=== PATIENT | male | born 1995 | race Caucasian/White ===

== ENCOUNTER 2021-02-26 12:21 | Outpatient (CLI) | payer OTHER, SELFPAY ==
--- NOTE | 2021-03-02 15:29 | WPDPFTINT ---
PFT Procedure Performed PFT Procedure Performed Plethysmography (Lung Vol) Diffusing Cap (DLCO) Flow Vol Loop Spirometry w/o Bronchodil PFT Interpretation DOS: 02/26/2021 REQUESTING: Asthma REASON FOR TESTING: Dr Francisco Hernandez PULMONARY FUNCTION TESTS This test shows repeatability of the FEV1 spirometry as Grade B. Spirometry: FEV1 is increased 127%, and FVC is 143%, supranormal. The FEV1/FVC ratio is 74% normal, no obstruction. No bronchodilator was given. Lung volumes: Total lung capacity mildly increased 128% consistent with hyperinflation. Residual volume normal 76%. RV/TLC is 14% which is not elevated, indicating that there is no air trapping. Diffusion: DLCO is 100%, normal. Flow volume loop: Flattening of the expiratory peak. IMPRESSION: Normal spirometry without obstruction, mild hyperinflation, no air trapping, normal diffusion. The flattening of the expiratory limb suggests a variable intrathoracic obstruction. This finding is non-specific and may be seen in a variety of conditions including tracheal lesions, bronchogenic cysts or tracheomalacia of the intrathoracic intrathoracic airway. Consider chest CT scan. Krysten Gonzalez MD
== END 2021-02-26 12:22 | disposition home or self-care (01) ==
PROVIDERS: PCP Family Medicine; Visit Provider Family Medicine
DX: J45.909 Unspecified asthma, uncomplicated (principal)
CPT/HCPCS: 94375; 94726; 94729

== ENCOUNTER → 2021-03-13 11:48 | Outpatient (CLI) | payer OTHER, SELFPAY ==
--- NOTE | ~2021-03-13 | CT_ITS ---
EXAMINATION: CT diagnostic chest w con DATE: 03/13/2021 12:16 INDICATION: Shortness of breath. Abnormal finding in lung field on chest regress reportedly performed at an outside facility. TECHNIQUE: Computed tomography (CT) of the chest was performed with 75 cc Omnipaque 350 intravenous c ontrast. Automated exposure control and iterative reconstruction technique were employed. Exam dose: 325.38 mGy-cm total exam DLP. COMPARISON: None FINDINGS: Normal heart size. No pericardial or pleural effusion. No hilar or mediastinal mass lesion or lymphadenopathy. The thyroid gland appears normal. No thoracic aortic aneurysm or dissection. No hilar or mediastinal mass lesion or lymphadenopathy. No pulmonary infiltrate or consolidation or pulmonary mass lesion. The adrenal glands are unremarkable. Included upper abdominal structures are unremarkable. IMPRESSION: No significant abnormality Reviewed, dictated and finalized at [facility]. Reviewed, dictated and finalized at [facility]. IMPRESSION: No significant abnormality
== END ==
PROVIDERS: PCP Family Medicine; Visit Provider Family Medicine
DX: R91.8 Other nonspecific abnormal finding of lung field (principal)
CPT/HCPCS: 71260; Q9967

== ENCOUNTER 2021-03-14 10:49 | Emergency (ER) | payer OTHER, SELFPAY ==
[2021-03-14] VITALS (15 sets, daily range): BP systolic 113–145; BP diastolic 63–80; PULSE 64–78; RESP 14–18; TEMP 36.5–36.8; O2SAT 96–100
--- NOTE | 2021-03-14 11:37 | PC.NURSE ---
Pt attempting to urinate in [place] at this time.
[2021-03-14 12:04] LABS: Alanine Aminotransferase 12 U/L (4-50); Albumin Level 4.7 g/dL (3.5-5.1); Alkaline Phosphatase 62 U/L (38-126); Anion Gap 8 mmol/L (8-16); Aspartate Amino Transferase 18 U/L (17-59); Bilirubin,Total 0.6 mg/dL (0.2-1.3); Blood Urea Nitrogen 13 mg/dL (9-20); Calcium 9.5 mg/dL (8.4-10.2); Carbon Dioxide 31 mmol/L (22-30); Chloride 103 mmol/L (98-107); Estimated CRCL calculation 115 ml/min; Estimated Glomerular Filt Rate > 60; Glucose 93 mg/dL (65-110); Lipase 54 U/L (23-300); Potassium 4.8 mmol/L (3.4-5.0); Sodium 142 mmol/L (137-145)
[2021-03-14 12:09] LABS: Basophils Percent Auto 0.6 % (0.2-1.2); Eosinophils Absolute Auto 0.2 K/mm3 (0-0.3); Eosinophils Percent Auto 4.2 % (0-4.4); Hematocrit 48.1 % (42.0-52.0); Hemoglobin 16.4 g/dL (14.0-18.0); Immature Granulocyte Absolute 0.01 K/mm3 (0.00-0.031); Immature Granulocyte Percent A 0.2 % (0-0.5); Lymphocytes Absolute Auto 1.58 K/mm3 (0.9-3.2); Lymphocytes Percent Auto 31.3 % (18.3-44.2); Mean Corpuscular HGB Conc 34.1 g/dl (32-36); Mean Corpuscular Hemoglobin 30.1 pg (26-34); Mean Corpuscular Volume 88.4 fl (80-100); Mean Platelet Volume 10.4 fl (7.4-10.4); Monocytes Absolute Auto 0.5 K/mm3 (0.1-0.6); Monocytes Percent Auto 10.5 % (2.6-8.5); Neutrophils Absolute Auto 2.7 K/mm3 (1.3-6.7); Neutrophils Percent Auto 53.2 % (45.5-73.1); Platelet Count Result 233 k/mm3 (150-375); Red Blood Count 5.44 M/mm3 (4.6-6.20); Red Cell Distribution Width 11.9 % (11.5-14.5); White Blood Count 5.1 K/mm3 (4.5-10.0)
[2021-03-14 12:49] LABS: Add Urine Microscopic? YES; Appearance Urine Clear (Clear); Bacteria Urine Trace /hpf; Bilirubin Urine Negative (Negative); Blood Urine Negative (Negative); Color Urine Yellow (Yellow); Glucose Urine UA Negative (Negative); Ketones Urine Negative (Negative); Leukocyte Esterase Ur Negative LEU/UL (Negative); Mucus Urine Moderate /lpf; Nitrate Urine Negative (Negative); Protein Urine Negative (Negative); RBC Urine 0-2 /hpf (0-2); Squamous Epithelial Cell Urine Rare /hpf (Few); WBC Urine 0-3 /hpf
--- NOTE | 2021-03-14 12:59 | ED.ABDPAIN ---
HPI - Abdominal Pain General Chief Complaint: Abdominal Pain <SARA Feldman Last Filed: 03/14/21 13:01> Stated Complaint: RLQ abd pain <SARA Feldman Last Filed: 03/14/21 13:01> Time Seen by Provider: 03/14/21 11:04 <Riya Maurice PA-C - Last Filed: 03/14/21 13:01> Source: patient <SARA Fedlman Last Filed: 03/14/21 13:01> Mode of arrival: ambulatory <SARA Feldman Last Filed: 03/14/21 13:01> Limitations: no limitations <SARA Feldman Last Filed: 03/14/21 13:01> History of Present Illness HPI narrative: Patient presents with now right lower quadrant pain he presented yesterday after having CT scan of his chest with contrast. Patient states that he was being evaluated for possible asthma. Patient denies any fever, chills, nausea, vomiting, diarrhea. Patient denies he does not currently have pain with just sitting still. Patient states he does have some mild tenderness with deep palpation. Patient reports that his symptoms are stemming to the emergency department. Patient denies previous abdominal surgeries or issues. <SARA Feldman Last Filed: 03/14/21 13:01> Related Data Home Medications: Home Medications Medication Instructions Recorded Confirmed cetirizine-pseudoephedrine tablet PO 03/14/21 [Zyrtec-D] fluticasone propionate [Flonase] INTRANASAL 03/14/21 <SARA Feldman Last Filed: 03/14/21 13:01> Allergies/Adverse Reactions: Allergies Allergy/AdvReac Type Severity Reaction Status Date / Time No Known Allergies Allergy Verified 03/14/21 11:14 <SARA Feldman Last Filed: 03/14/21 13:01> Review of Systems Review of Systems: CONSTITUTIONAL: Denies fever, chills, or sweats. EYES: Denies visual changes, redness, or discharge. ENT: Denies rhinorrhea, congestion, sore throat, or otalgia. CARDIOVASCULAR: Denies chest pain, palpitations, or edema. RESPIRATORY: Denies cough or dyspnea. GASTROINTESTINAL: Reports improved abdominal pain, denies nausea, vomiting, or diarrhea. GENITOURINARY: Denies dysuria or hematuria. SKIN: Denies rash or itching. MUSCULOSKELETAL: Denies back pain, joint pain, or myalgia. NEUROLOGIC: Denies headache, numbness, dizziness, or weakness. PSYCHIATRIC: Denies anxiety or depression. <Riya Maurice PA-C - Last Filed: 03/14/21 13:01> Exam Narrative: GENERAL: Well-appearing, well-nourished, and in no acute distress. Smiling and talking normally. HEAD: Normocephalic, atraumatic. EYES: PERRLA and EOMI. NECK: Supple. No adenopathy or masses. No carotid bruits or JVD CHEST: Clear to auscultation. No respiratory distress. No wheezes rales or rhonchi HEART: Regular rate and rhythm. No murmur heard. Normal peripheral pulses. ABDOMEN: Soft, no rebound or guarding. Patient not showing any signs of pain with light or deep palpation. Verbalizes mild discomfort with deep palpation of lower abdomen. nondistended, normal active bowel sounds. EXTREMITIES: Normal range of motion. No edema. SKIN: Warm, dry, no rash. NEURO: No focal deficits. Alert and oriented x3. PSYCH: Normal mood and affect. <SARA Feldman Last Filed: 03/14/21 13:01> Course Vital Signs Vital signs: Vital Signs Temperature 98.3 F 03/14/21 10:54 Pulse Rate 78 03/14/21 10:54 Respiratory Rate 16 03/14/21 10:54 Blood Pressure 145/80 H 03/14/21 10:54 Pulse Oximetry 100 03/14/21 10:54 Temperature 97.7 F 03/14/21 13:12 Pulse Rate 64 03/14/21 13:12 Respiratory Rate 14 03/14/21 13:12 Blood Pressure 120/73 03/14/21 13:12 Pulse Oximetry 97 03/14/21 13:12 <SARA Feldman Last Filed: 03/14/21 13:01> Vital Signs Temperature 98.3 F 03/14/21 10:54 Pulse Rate 78 03/14/21 10:54 Respiratory Rate 16 03/14/21 10:54 Blood Pressure 145/80 H 03/14/21 10:54 Pulse Oximetry 100 03/14/21 10:54 Temperature 97.7 F 03/14/21 13:12
[2021-03-14 13:00] LABS: Specific Grav Ur 1.032 (1.001-1.035)
== END 2021-03-14 13:14 | disposition home or self-care (01) ==
PROVIDERS: Emergency Provider General Practice; PCP Family Medicine
DX: R10.31 Right lower quadrant pain (principal)
CPT/HCPCS: 36415; 80053; 81001; 83690; 85025; 99283